=== PATIENT | female | born 1995 | race Native Hawaiian/Other Pacific Islander ===

== ENCOUNTER 2020-04-06 11:05 | Day surgery (SDC) | payer OTHER ==
[2020-04-06] MEDS ORDERED: Lactated Ringers 1,000 ML IV ONE (11:26)
[2020-04-06] MEDS ORDERED: Lactated Ringers 1,000 ML IV SCH (11:30)
[2020-04-06] MEDS ORDERED: DIPRIVAN 200 MG/20 ML IV ONE (11:59)
[2020-04-06] MEDS ORDERED: SUBLIMAZE 250 MCG/5 ML ONE (11:59)
[2020-04-06] MEDS ORDERED: Versed 2 MG/2 ML Injection ONE (11:59)
[2020-04-06] MEDS ORDERED: Zemuron 100 MG/10 ML ONE (11:59)
[2020-04-06] MEDS ORDERED: MEFOXIN 2 GM PREMIX** 2 GM/50 ML ML IV SCH (12:00)
--- NOTE | 2020-04-06 12:57 | HP ---
DATE OF SURGERY: 04/06/2020 HISTORY OF PRESENT ILLNESS: The patient is a 24 year old white female who has been having right upper quadrant pain the past three to four days. She has been to the emergency room twice and came back last night. She had normal labs. Ultrasound showed cholelithiasis, no wall thickening, no pericholecystic fluid. It was felt she had acute exacerbation of chronic cholelithiasis and chronic cholecystitis. It was felt she would benefit from cholecystectomy as she has been to the emergency room in the past three to four days. PAST MEDICAL HISTORY: Chronic pelvic pain with some low grade issues on her cervix in the past. She had some dysmenorrhea in the past. She did have pulmonary stenosis as a child. I think she said she had surgery at [age] years of age. PAST SURGICAL HISTORY: Cardiac balloon surgery in the past. Tonsillectomy in the past. Thyroidectomy in the past. MEDICATIONS: Ibuprofen and multivitamins recently. ALLERGIES: MORPHINE. FAMILY HISTORY: Pulmonary valve stenosis, endometriosis. SOCIAL HISTORY: Denies alcohol abuse, former smoker. LAB DATA AND TESTS: She had ultrasound show cholelithiasis. REVIEW OF SYSTEMS: Fourteen systems reviewed per previous admission assessment. Pertinent for as noted above. She has some nausea. No current vomiting. No jaundice. No liver problems. No prior abdominal surgeries. PHYSICAL EXAMINATION: GENERAL: Slightly uncomfortable otherwise no acute distress. HEENT: Sclerae nonicteric. NECK: No JVD. CHEST: Equal excursion, nonlabored breathing. CVS: Regular rate and rhythm. ABDOMEN: Soft, tenderness right upper quadrant. No peritoneal signs. EXTREMITIES: No cyanosis. NEURO: Alert, oriented, moving extremities symmetrically. PSYCH: Appropriate mood and affect. IMPRESSION: Acute exacerbation of chronic cholecystitis/cholelithiasis. I feel the patient will benefit from cholecystectomy as she has had two trips to the emergency room in the past three days or so, I feel she warrants proceeding at this time, will add her to the schedule today as she has not had any food this morning. She was shown the gallbladder pamphlet, explained the risks and benefits in detail including but not limited to bleeding or infection, risk of trocar injury or hernia, risk of bowel, bladder or blood vessel injury, risk of bile leak, bile duct injury, retained stone or sludge possibly requiring further procedure either open or ERCP, general risk of anesthesia, deep venous thrombosis, pulmonary embolism, pneumonia, perioperative risk of aches, pains, bloating, constipation and/or loose stools possibly even chronic in nature, possible open procedure, general risk of anesthesia, possibility if this procedure fails to improve her symptoms that she may need further work up and/or testing, endoscopy, other studies or procedures. She understands as well as general risk of anesthesia, deep venous thrombosis, pulmonary embolism, pneumonia but not limited to, will proceed with laparoscopic cholecystectomy with possible open when OR time available.
[2020-04-06] MEDS ORDERED: Sensorcaine 0.25% 10 ML ONE (13:24)
[2020-04-06] MEDS ORDERED: Xylocaine-Mpf 2% 5 Ml Vial ONE (13:59)
[2020-04-06] MEDS ORDERED: Decadron 4 MG INJ ONE (14:09)
[2020-04-06] MEDS ORDERED: Zofran 4 MG/2 ML VIAL ONE ×3 (14:09→15:47)
[2020-04-06] MEDS ORDERED: SUBLIMAZE 100 MCG/2 ML ONE ×2 (14:19→15:23)
[2020-04-06] MEDS ORDERED: TORAdol 30 mg Injection ONE (14:35)
[2020-04-06] MEDS ORDERED: BRIDION 200MG/2ML IV ONE (14:52)
[2020-04-06] MEDS ORDERED: Hydromorphone 1 mg/ml Injection ONE (15:24)
[2020-04-06] MEDS ORDERED: Zofran 4 MG/2 ML VIAL IV PRN (16:57)
[2020-04-06 17:12] VITALS: BP 117/66; PULSE 73; O2SAT 98
--- NOTE | 2020-04-07 07:53 | OP ---
SURGERY DATE/TIME: 04/06/2020 4237 PREOPERATIVE DIAGNOSIS: Acute exacerbation of symptomatic cholelithiasis, chronic cholecystitis. POSTOPERATIVE DIAGNOSIS: Acute exacerbation of symptomatic cholelithiasis, chronic cholecystitis. PROCEDURE: Laparoscopic cholecystectomy. SURGEON: Dr. Zac Linda. ANESTHESIA: General. ESTIMATED BLOOD LOSS: Minimal. INDICATIONS: As noted above. Risks and benefits explained in detail but not limited to and consent obtained. DESCRIPTION OF PROCEDURE AND FINDINGS: The patient was taken to the operating room. General anesthesia induced. Abdomen prepped and draped in the usual sterile fashion. After official time out and no disagreement with planned procedure, a transverse incision made at the infraumbilical area. Fascia grasped and pulled upward. Veress needle inserted and tested with saline. Pneumoperitoneum accomplished insufflating opening pressure of 0-15. A 5 mm bladeless port and camera inserted without difficulty followed by two - 5 mm right upper quadrant ports and 5 mm epigastric port. The gallbladder grasped. It is long, had extensive chronic inflammatory reaction dissected posterior, lateral to anterior fashion. Slowly and carefully cystic duct and infundibular area slowly and carefully well skeletonized until the critical view obtained both anteriorly and posteriorly. Once this was accomplished, the cystic duct and cystic artery were clipped x3 and divided in usual fashion. The gallbladder is quite vascular. Staying directly on the gallbladder wall it required clipping additional oozing side branches off of the cystic artery, cystic vein directly on the gallbladder wall, slowly and carefully dissected free. Just prior to releasing from final attachments to the anterior edge of the liver, the liver bed re-inspected. Clips noted in place cystic duct and cystic artery stump. No signs of any active bleeding or bile leakage. It was felt there was no benefit from drain placement. Gallbladder released from final attachments to anterior edge of the liver, placed in the provided sac pulled up and out the infraumbilical port site and passed off. The fascial defect is closed with puncture closure device with #1 Vicryl under direct vision of the camera. Copious amount of irrigation accomplished lateral to the liver and subhepatic space irrigating clear. Liver bed re-inspected. Clips noted in place in cystic duct and cystic artery stumps. No signs of any active bleeding or bile leakage. It was felt there is no benefit in drain placement. Pneumoperitoneum decompressed. The wound irrigated out. Skin incision closed with 4-0 Vicryl. Steri-Strips and sterile dressing applied. 0.25% Marcaine local injected along the skin incision fascial defect. The patient tolerated the procedure well. There were no immediate complications. Findings discussed with the family over the phone.
== END 2020-04-06 17:20 | disposition home or self-care (01) ==
LOC: SDC 11:05
PROVIDERS: ATTEND Surgery
DX: K80.00 Calculus of gallbladder with acute cholecystitis without obstruction (principal)
CPT/HCPCS: 84703; J0694; J1100; J1170; J1885; J2250; J2405; J2704; J3010